=== PATIENT | female | born 1970 | race Caucasian/White ===

== ENCOUNTER 2018-07-02 06:58 | Day surgery (SDC) | payer OTHER ==
[~2018-07-02 06:58] MED LIST: CATAFLAN PO; NEURONTIN300 MG PO
== END 2018-07-02 13:05 | disposition home or self-care (01) ==
LOC: CIR.AMB 06:58
DX: M75.42 Impingement syndrome of left shoulder (principal); M75.32 Calcific tendinitis of left shoulder; M75.112 Incomplete rotator cuff tear or rupture of left shoulder, not specified as traumatic